=== PATIENT | female | born 1935 | race Hispanic/Latino ===

== ENCOUNTER → 2017-08-10 | Outpatient (CLI) | payer OTHER ==
[~2017-08-10] MED LIST: ACET-2247 PO; ALEN70TA47 PO; AMLO10TA2 PO; CARV3.12 PO; FLUTICASONE NASAL; FURO20TA4 PO; FURO40TA5 PO; KLOR CON PO; LATA2.5D2 OP; LATANOPROST OU; Losartan Potassium PO; MONT10TA24 PO; NITR0.4T SL; PRAV40TA3 PO; WARF2.5T85 PO
== END | disposition home or self-care (01) ==
LOC: RAH 07:58
PROVIDERS: ATTEND Internal Medicine
DX: M43.17 Spondylolisthesis, lumbosacral region (principal); M41.86 Other forms of scoliosis, lumbar region
CPT/HCPCS: 72100

== ENCOUNTER 2017-11-15 21:32 | Emergency (ER) | payer OTHER ==
[~2017-11-15 21:32] MED LIST changes: -AMLO10TA2 PO; +AMLO10TA6 PO
[2017-11-15 22:04] LABS: BASOPHILS % (AUTO) 0.5 % (0.0-5.0); EOSINOPHILS % (AUTO) 1.8 % (0.0-8.0); HEMATOCRIT 37.5 % (36-48); LYMPHOCYTES % (AUTO) 24.5 % (21.0-51.0); MEAN CORPUSCULAR HEMOGLOBIN 31.9 pg (27.0-33.0); MEAN CORPUSCULAR HGB CONC 33.4 g/dL (32.0-36.0); MEAN CORPUSCULAR VOLUME 95.6 fL (79-99); MONOCYTES % (AUTO) 10.3 % (3.0-13.0); NEUTROPHILS % (AUTO) 62.9 % (40.0-77.0); PLATELET COUNT (AUTO) 148 K/uL (130-400); RED BLOOD CELL COUNT(AUTO) 3.93 MIL/uL (4.00-5.50); RED CELL DISTRIBUTION WIDTH 14.5 % (11.0-15.5); WHITE BLOOD COUNT (AUTO) 9.1 K/uL (4.8-10.8)
[2017-11-15 22:20] LABS: CREATININE 1.2 mg/dL (0.5-1.5); POTASSIUM 4.6 mmol/L (3.5-5.1)
[2017-11-15 22:23] LABS: BILIRUBIN,TOTAL 0.5 mg/dL (0.2-1.0)
[2017-11-15 22:30] LABS: INR 2.41 (0.85-1.15); PARTIAL THROMBOPLASTIN TIME 46.9 SEC (26.3-35.5); PROTHROMBIN TIME 24.9 SEC (9.6-11.6)
== END 2017-11-16 00:31 | disposition home or self-care (01) ==
LOC: EDH 21:32
DX: S00.03XA Contusion of scalp, initial encounter (principal); E78.5 Hyperlipidemia, unspecified; I10 Essential (primary) hypertension; I25.10 Atherosclerotic heart disease of native coronary artery without angina pectoris; W20.8XXA Other cause of strike by thrown, projected or falling object, initial encounter; Y93.89 Activity, other specified; Y92.89 Other specified places as the place of occurrence of the external cause; Y99.8 Other external cause status
CPT/HCPCS: 36415; 70450; 72125; 80053; 84484; 85025; 85610; 85730; 93005

== ENCOUNTER 2018-04-12 10:30 | Emergency (ER) | payer OTHER ==
[~2018-04-12 10:30] MED LIST changes: +ALEN70TA10 PO; -ALEN70TA47 PO; -AMLO10TA6 PO; +AMLO10TA7 PO
[2018-04-12 10:57] LABS: BASOPHILS % (AUTO) 0.4 % (0.0-5.0); EOSINOPHILS % (AUTO) 1.9 % (0.0-8.0); HEMATOCRIT 33.1 % (36-48); LYMPHOCYTES % (AUTO) 20.4 % (21.0-51.0); MEAN CORPUSCULAR HEMOGLOBIN 31.7 pg (27.0-33.0); MEAN CORPUSCULAR HGB CONC 33.7 g/dL (32.0-36.0); MEAN CORPUSCULAR VOLUME 94.2 fL (79-99); MONOCYTES % (AUTO) 13.3 % (3.0-13.0); NUCLEATED RED BLOOD CELLS 0.1 % (0.0-0.19); PLATELET COUNT (AUTO) 143 K/uL (130-400); RED BLOOD CELL COUNT(AUTO) 3.51 MIL/uL (4.00-5.50); RED CELL DISTRIBUTION WIDTH 14.5 % (11.0-15.5); WHITE BLOOD COUNT (AUTO) 5.4 K/uL (4.8-10.8)
[2018-04-12 11:50] LABS: ALBUMIN 3.4 g/dL (3.5-5.0); BILIRUBIN,TOTAL 0.4 mg/dL (0.2-1.0); CREATININE 1.5 mg/dL (0.5-1.5); POTASSIUM 3.5 mmol/L (3.5-5.1); TOTAL PROTEIN, SERUM 7.1 g/dL (6.0-8.3)
[2018-04-12] MEDS ORDERED: FURO40TA5 PO (13:40)
[2018-04-12] MEDS ORDERED: Losartan Potassium PO (13:40)
[2018-04-12] MEDS ORDERED: WARF2.5T85 PO (13:40)
[2018-04-12] MEDS ORDERED: CARV3.12 PO (13:40)
[2018-04-12] MEDS ORDERED: UMEC1DIS IH (13:45)
[2018-04-12] MEDS ORDERED: LEVO500T2 PO (13:45)
[2018-04-12] MEDS ORDERED: PRED10TA3 PO ×2 (13:45→13:47)
[2018-04-12] MEDS ORDERED: BRIM5DRO OP (13:45)
[2018-04-12] MEDS ORDERED: ACET-2247 PO (13:45)
[2018-04-12] MEDS ORDERED: ALBU2.5V2 IH (13:45)
== END 2018-04-12 15:48 | disposition home or self-care (01) ==
LOC: EDH 10:30
DX: I48.92 Unspecified atrial flutter (principal); I48.91 Unspecified atrial fibrillation; R55 Syncope and collapse; E86.0 Dehydration; I10 Essential (primary) hypertension; E78.5 Hyperlipidemia, unspecified; I25.810 Atherosclerosis of coronary artery bypass graft(s) without angina pectoris; Z88.8 Allergy status to other drugs, medicaments and biological substances
CPT/HCPCS: 36415; 71045; 80053; 82550; 84484; 85025; 93005; 96360; 96361

== ENCOUNTER → 2018-05-08 | Outpatient (CLI) | payer OTHER ==
[~2018-05-08] MED LIST changes: +ALBU2.5V2 IH; +BRIM5DRO OP; -FLUTICASONE NASAL; -FURO20TA4 PO; -LATANOPROST OU; +LEVO500T2 PO; +PRED10TA3 PO; +UMEC1DIS IH
== END | disposition home or self-care (01) ==
LOC: SHCH 11:15
PROVIDERS: ATTEND Internal Medicine Cardiovascular Disease
DX: I08.2 Rheumatic disorders of both aortic and tricuspid valves (principal); R09.89 Other specified symptoms and signs involving the circulatory and respiratory systems
CPT/HCPCS: 93306; 93880

== ENCOUNTER → 2018-08-01 | Outpatient (CLI) | payer OTHER | END | disposition home or self-care (01) | LOC: RAH 09:43 | PROVIDERS: ATTEND Internal Medicine | DX: I11.9 Hypertensive heart disease without heart failure (principal); R04.2 Hemoptysis | CPT/HCPCS: 71046 ==

== ENCOUNTER → 2018-09-18 | Outpatient (CLI) | payer OTHER | END | disposition home or self-care (01) | LOC: RAH 13:00 | PROVIDERS: ATTEND Internal Medicine | DX: S09.90XA Unspecified injury of head, initial encounter (principal); X58.XXXA Exposure to other specified factors, initial encounter; Y93.89 Activity, other specified; Y92.89 Other specified places as the place of occurrence of the external cause; Y99.8 Other external cause status | CPT/HCPCS: 70450 ==

== ENCOUNTER → 2019-09-02 | Outpatient (CLI) | payer OTHER ==
[~2019-09-02] MED LIST changes: -MONT10TA24 PO; +MONT10TA26 PO
== END | disposition home or self-care (01) ==
LOC: SHCH 08:25
PROVIDERS: ATTEND Internal Medicine Cardiovascular Disease
DX: I10 Essential (primary) hypertension (principal)
CPT/HCPCS: 93306; 93356

== ENCOUNTER → 2019-09-17 | Outpatient (CLI) | payer OTHER | END | disposition home or self-care (01) | LOC: OIH 08:52 | PROVIDERS: ATTEND Internal Medicine | DX: M47.812 Spondylosis without myelopathy or radiculopathy, cervical region (principal); M48.02 Spinal stenosis, cervical region; I70.0 Atherosclerosis of aorta; M21.932 Unspecified acquired deformity of left forearm; M19.042 Primary osteoarthritis, left hand; M19.032 Primary osteoarthritis, left wrist; M81.0 Age-related osteoporosis without current pathological fracture; Z95.0 Presence of cardiac pacemaker | CPT/HCPCS: 72040; 73090; 73110; 73130 ==

== ENCOUNTER → 2019-09-23 | Outpatient (CLI) | payer OTHER | END | disposition home or self-care (01) | LOC: OIH 08:38 | PROVIDERS: ATTEND Internal Medicine | DX: M47.812 Spondylosis without myelopathy or radiculopathy, cervical region (principal); M48.02 Spinal stenosis, cervical region | CPT/HCPCS: 72040 ==

== ENCOUNTER → 2020-01-27 | Outpatient (CLI) | payer OTHER ==
[~2020-01-27] MED LIST changes: -ALEN70TA10 PO; +ALEN70TA69 PO; +AMLO-258 PO; -AMLO10TA7 PO; +LATA2.5D14 OP; -LATA2.5D2 OP; -MONT10TA26 PO; +MONT10TA96 PO
== END | disposition home or self-care (01) ==
LOC: RAH 12:38
PROVIDERS: ATTEND Internal Medicine
DX: S09.90XA Unspecified injury of head, initial encounter (principal); I67.82 Cerebral ischemia; G31.9 Degenerative disease of nervous system, unspecified; G93.89 Other specified disorders of brain; X58.XXXA Exposure to other specified factors, initial encounter; Y93.89 Activity, other specified; Y92.89 Other specified places as the place of occurrence of the external cause; Y99.8 Other external cause status; Z79.01 Long term (current) use of anticoagulants
CPT/HCPCS: 70450

== ENCOUNTER → 2020-07-03 | Outpatient (CLI) | payer OTHER ==
[~2020-07-03] MED LIST changes: -ALEN70TA69 PO; +ALEN70TA80 PO; +MONT10TA32 PO; -MONT10TA96 PO
== END | disposition home or self-care (01) ==
LOC: RAH 14:12
PROVIDERS: ATTEND Internal Medicine
DX: E04.2 Nontoxic multinodular goiter (principal); I51.7 Cardiomegaly; Z95.0 Presence of cardiac pacemaker
CPT/HCPCS: 71046; 76536

== ENCOUNTER → 2020-07-22 | Outpatient (CLI) | payer OTHER | END | disposition home or self-care (01) | LOC: RAH 11:31 | PROVIDERS: ATTEND Otolaryngology Plastic Surgery within the Head & Neck | DX: R49.8 Other voice and resonance disorders (principal); R13.10 Dysphagia, unspecified | CPT/HCPCS: 74230; 92611 ==

== ENCOUNTER 2020-09-08 03:35 | Emergency (ER) | payer OTHER ==
[2020-09-08 03:40] VITALS: BP 136/85
[2020-09-08 04:12] VITALS: BP 156/71
[2020-09-08 04:24] LABS: BASOPHILS % (AUTO) 0.4 % (0.0-5.0); EOSINOPHILS % (AUTO) 2.1 % (0.0-8.0); HEMATOCRIT 37.3 % (36-48); LYMPHOCYTES % (AUTO) 33.9 % (21.0-51.0); MEAN CORPUSCULAR HEMOGLOBIN 30.9 pg (27.0-33.0); MEAN CORPUSCULAR HGB CONC 31.9 g/dL (32.0-36.0); MEAN CORPUSCULAR VOLUME 96.9 fL (79-99); MONOCYTES % (AUTO) 9.2 % (3.0-13.0); NEUTROPHILS % (AUTO) 54.1 % (40.0-77.0); PLATELET COUNT (AUTO) 194 K/uL (130-400); RED BLOOD CELL COUNT(AUTO) 3.85 MIL/uL (4.00-5.50); RED CELL DISTRIBUTION WIDTH 15.2 % (11.0-15.5); WHITE BLOOD COUNT (AUTO) 7.1 K/uL (4.8-10.8)
[2020-09-08 04:40] LABS: POTASSIUM 4.5 mmol/L (3.5-5.1)
[2020-09-08 04:45] LABS: ALBUMIN 3.8 g/dL (3.5-5.0); BILIRUBIN,TOTAL 0.4 mg/dL (0.2-1.0); TOTAL PROTEIN, SERUM 7.5 g/dL (6.0-8.3)
[2020-09-08 05:00] LABS: APPEARANCE,URINE Clear (CLEAR); BILIRUBIN,URINE Negative (NEGATIVE); COLOR,URINE Yellow (YELLOW); GLUCOSE, URINE (UA) Negative (NEGATIVE); KETONES,URINE Negative (NEGATIVE); LEUKOCYTE ESTERASE ,URINE Negative (NEGATIVE); NITRATE,URINE Negative (NEGATIVE); OCCULT BLOOD,URINE Negative (NEGATIVE); PH,URINE 6.5 (5.0-8.0); PROTEIN,URINE Negative (NEGATIVE); UROBILINOGEN,URINE 0.2 mg/dL (0.2-1.0)
[2020-09-08 05:17] LABS: INR 2.65 (0.85-1.15); PROTHROMBIN TIME 26.4 SEC (9.6-11.6)
[2020-09-08 05:29] LABS: B-TYPE NATRIURETIC PEPTIDE 252 pg/mL (0-100)
[2020-09-08 06:53] VITALS: BP 148/78
[2020-09-08] MEDS ORDERED: IBUP-2076 PO (07:46)
[2020-09-08] MEDS ORDERED: KETOROLAC 15MG/ML VIAL (15MG/ML) IV SCH (08:00)
[2020-09-08] MEDS ORDERED: KETOROLAC 15MG/ML VIAL (15MG/ML) IV ONE (08:00)
[2020-09-08 08:07] VITALS: BP 137/81
== END 2020-09-08 09:31 | disposition home or self-care (01) ==
LOC: EDH 03:35
DX: R07.89 Other chest pain (principal); E78.00 Pure hypercholesterolemia, unspecified; I10 Essential (primary) hypertension; I48.91 Unspecified atrial fibrillation; Z79.01 Long term (current) use of anticoagulants; Z79.1 Long term (current) use of non-steroidal anti-inflammatories (NSAID); Z79.52 Long term (current) use of systemic steroids; Z79.899 Other long term (current) drug therapy
CPT/HCPCS: 36415; 71045; 80053; 81003; 83880; 84484; 85025; 85610; 85730; 93005; 96374; 99285; J1885

== ENCOUNTER 2020-09-13 12:48 | Observation (INO) | payer OTHER ==
[~2020-09-13] VITALS: Ht 160 cm; Wt 70.4 kg
[~2020-09-13 12:48] MED LIST changes: +IBUP-2076 PO
[2020-09-13 13:22] LABS: APPEARANCE,URINE Clear (CLEAR); BILIRUBIN,URINE Negative (NEGATIVE); COLOR,URINE Yellow (YELLOW); GLUCOSE, URINE (UA) Negative (NEGATIVE); KETONES,URINE Negative (NEGATIVE); LEUKOCYTE ESTERASE ,URINE Negative (NEGATIVE); NITRATE,URINE Negative (NEGATIVE); OCCULT BLOOD,URINE Negative (NEGATIVE); PH,URINE 5.5 (5.0-8.0); PROTEIN,URINE Negative (NEGATIVE); UROBILINOGEN,URINE 0.2 mg/dL (0.2-1.0)
[2020-09-13] MEDS ORDERED: ASPIRIN 325MG TAB PO ONE (13:30)
[2020-09-13] MEDS ORDERED: NITROGLYCERIN 1GM OINT 1 INCH/1GM TD SCH ×2 (13:30→21:00)
[2020-09-13] MEDS ORDERED: AMIODARONE 150MG VIAL 150 MG in DEXTROSE 5%-WATER 100 ML IV SCH (13:30)
[2020-09-13] MEDS ORDERED: METOPROLOL TARTRATE 1 MG/ML 5ML VIAL IV ONE (13:51)
[2020-09-13 13:56] VITALS: BP 116/77
[2020-09-13 14:25] LABS: INR 1.42 (0.85-1.15)
[2020-09-13 14:29] LABS: ALBUMIN 4.1 g/dL (3.5-5.0); BILIRUBIN,TOTAL 0.7 mg/dL (0.2-1.0); CREATININE 1.1 mg/dL (0.5-1.5); POTASSIUM 4.5 mmol/L (3.5-5.1); TOTAL PROTEIN, SERUM 8.1 g/dL (6.0-8.3)
[2020-09-13 14:42] LABS: PARTIAL THROMBOPLASTIN TIME 20.8 SEC (26.3-35.5)
[2020-09-13 14:46] LABS: BASOPHILS % (AUTO) 0.1 % (0.0-5.0); HEMATOCRIT 38.5 % (36-48); LYMPHOCYTES % (AUTO) 16.8 % (21.0-51.0); MEAN CORPUSCULAR HEMOGLOBIN 30.8 pg (27.0-33.0); MEAN CORPUSCULAR HGB CONC 32.5 g/dL (32.0-36.0); MEAN CORPUSCULAR VOLUME 94.8 fL (79-99); MONOCYTES % (AUTO) 3.6 % (3.0-13.0); NEUTROPHILS % (AUTO) 77.2 % (40.0-77.0); PLATELET COUNT (AUTO) 182 K/uL (130-400); RED BLOOD CELL COUNT(AUTO) 4.06 MIL/uL (4.00-5.50); RED CELL DISTRIBUTION WIDTH 15.5 % (11.0-15.5)
[2020-09-13 15:11] LABS: B-TYPE NATRIURETIC PEPTIDE 328 pg/mL (0-100)
[2020-09-13 15:18] VITALS: BP 135/66
[2020-09-13 17:30] VITALS: BP 134/58
[2020-09-13] MEDS ORDERED: CEFD300C3 PO (18:06)
[2020-09-13] MEDS ORDERED: AMLO-258 PO (18:06)
[2020-09-13] MEDS ORDERED: PRAV40TA3 PO (18:06)
[2020-09-13] MEDS ORDERED: CETI10TA86 PO (18:06)
[2020-09-13] MEDS ORDERED: POTA-79 PO (18:06)
[2020-09-13] MEDS ORDERED: IPRA3S NASAL (18:06)
[2020-09-13] MEDS ORDERED: MONT10TA32 PO (18:06)
[2020-09-13] MEDS ORDERED: FLUT16H NASAL (18:06)
[2020-09-13 19:28] VITALS: BP 151/69
[2020-09-13 22:02] VITALS: BP 157/72
[2020-09-13] MEDS ORDERED: NITROGLYCERIN 0.4 MG SL TAB SL PRN (22:30)
[2020-09-13] MEDS ORDERED: KCL 20 MEQ ERTAB PO PRN (22:30)
[2020-09-13] MEDS ORDERED: POTASSIUM CHLORIDE 10% ELIXIR 20 MEQ/15 ML UDCUP PO PRN (22:30)
[2020-09-13] MEDS ORDERED: ALBUTEROL 0.083% 2.5 MG/3 ML INH IH PRN (22:30)
[2020-09-13] MEDS ORDERED: METOPROLOL TARTRATE 1 MG/ML 5ML VIAL IV PRN (22:30)
[2020-09-13] MEDS ORDERED: MAG/ALUM/SIMETH 30 ML UDCUP PO PRN (22:30)
[2020-09-13] MEDS ORDERED: DiphenhydrAMINE HCL 50 MG/ML VIAL IV PRN (22:30)
[2020-09-13] MEDS ORDERED: ACETAMINOPHEN 325 MG TAB PO PRN ×2 (22:30)
[2020-09-13] MEDS ORDERED: LIDOCAINE HCL-MPF 1% 2ML VIAL IV PRN (22:30)
[2020-09-13] MEDS ORDERED: POTASSIUM CHLORIDE 20MEQ/100ML 100 ML IV PRN (22:30)
[2020-09-13] MEDS ORDERED: DIPHENHYDRAMINE HCL 25 MG CAPSULE PO PRN (22:30)
[2020-09-13] MEDS ORDERED: ONDANSETRON 4MG INJ IV PRN (22:30)
[2020-09-13] MEDS ORDERED: LACTULOSE 20 GM/30 ML UDCUP PO PRN (22:30)
[2020-09-13] MEDS ORDERED: FLUTICASONE PROPIONATE 50MCG/SPRAY 16 GM BOTTLE EN PRN (22:30)
[2020-09-13 23:59] VITALS: BP 163/79
[2020-09-14] VITALS (8 sets, daily range): BP systolic 133–173; BP diastolic 56–85
[2020-09-14 00:09] LABS: CREATINE KINASE, TOTAL 46 U/L (21-232); MYOGLOBIN 38 ng/mL (10-92); TROPONIN I < 0.04 ng/mL (0.00-0.06)
[2020-09-14 06:24] LABS: BASOPHILS % (AUTO) 0.4 % (0.0-5.0); EOSINOPHILS % (AUTO) 1.9 % (0.0-8.0); HEMATOCRIT 44.1 % (36-48); LYMPHOCYTES % (AUTO) 34.3 % (21.0-51.0); MEAN CORPUSCULAR HEMOGLOBIN 30.9 pg (27.0-33.0); MEAN CORPUSCULAR HGB CONC 32.9 g/dL (32.0-36.0); MONOCYTES % (AUTO) 8.1 % (3.0-13.0); NEUTROPHILS % (AUTO) 54.9 % (40.0-77.0); PLATELET COUNT (AUTO) 218 K/uL (130-400); RED BLOOD CELL COUNT(AUTO) 4.69 MIL/uL (4.00-5.50); RED CELL DISTRIBUTION WIDTH 15.5 % (11.0-15.5); WHITE BLOOD COUNT (AUTO) 11.3 K/uL (4.8-10.8)
[2020-09-14 06:58] LABS: ALBUMIN 3.8 g/dL (3.5-5.0); BILIRUBIN,TOTAL 0.6 mg/dL (0.2-1.0); CREATININE 0.9 mg/dL (0.5-1.5); POTASSIUM 3.7 mmol/L (3.5-5.1); TOTAL PROTEIN, SERUM 7.7 g/dL (6.0-8.3)
[2020-09-14] MEDS ORDERED: FLUTICASONE PROPIONATE 50MCG/SPRAY 16 GM BOTTLE EN PRN (07:00)
[2020-09-14] MEDS ORDERED: LOSARTAN PO SCH (09:00)
[2020-09-14] MEDS ORDERED: PANTOPRAZOLE 40 MG TAB DR PO SCH (09:00)
[2020-09-14] MEDS ORDERED: KCL 20 MEQ ERTAB PO SCH (09:00)
[2020-09-14] MEDS ORDERED: TIMOLOL MALEATE 0.5% 5 ML BOTTLE OP SCH (09:00)
[2020-09-14] MEDS ORDERED: ANORO ELLIPTA IH SCH (09:00)
[2020-09-14] MEDS ORDERED: BRIMONIDINE TARTRATE 0.2% 5 ML BOTTLE OP SCH (09:00)
[2020-09-14] MEDS ORDERED: MONTELUKAST SODIUM 10 MG TAB PO SCH (09:00)
[2020-09-14] MEDS ORDERED: FUROSEMIDE 40 MG TABLET PO SCH (09:00)
[2020-09-14 09:36] LABS: CREATINE KINASE, TOTAL 71 U/L (21-232); MYOGLOBIN 41 ng/mL (10-92); TROPONIN I < 0.04 ng/mL (0.00-0.06)
[2020-09-14] MEDS: CARVEDILOL 3.125 MG TABLET PO SCH ×2 (10:00→20:23)
[2020-09-14] MEDS ORDERED: REGADENOSON 0.4 MG/5 ML PF SYG IVP SCH (13:30)
[2020-09-14] MEDS: NITROGLYCERIN 1GM OINT 1 INCH/1GM TD SCH ×2 (14:12→17:13)
[2020-09-14] MEDS ORDERED: CARV3.1262 PO (20:02)
[2020-09-14] MEDS ORDERED: LATANOPROST 2.5 ML DROPS OP SCH (21:00)
[2020-09-14] MEDS ORDERED: WARFARIN SODIUM 2.5 MG TAB PO SCH (21:00)
[2020-09-14] MEDS ORDERED: ATORVASTATIN 10 MG TABLET PO SCH (21:00)
== END 2020-09-14 20:30 | disposition home or self-care (01) ==
LOC: EDH 12:48 → EDHIP 16:40 → INTOOBSV 16:40 → EDHIP 22:58 → 4DH 09-14 09:46
PROVIDERS: ADMIT Internal Medicine; ATTEND Internal Medicine
DX: I24.9 Acute ischemic heart disease, unspecified (principal); M81.0 Age-related osteoporosis without current pathological fracture; E78.2 Mixed hyperlipidemia; I13.0 Hypertensive heart and chronic kidney disease with heart failure and stage 1 through stage 4 chronic kidney disease, or unspecified chronic kidney disease; I50.42 Chronic combined systolic (congestive) and diastolic (congestive) heart failure; N18.30 Chronic kidney disease, stage 3 unspecified; F41.1 Generalized anxiety disorder; E04.2 Nontoxic multinodular goiter; H40.9 Unspecified glaucoma; I42.0 Dilated cardiomyopathy; I48.20 Chronic atrial fibrillation, unspecified; D68.59 Other primary thrombophilia; I49.5 Sick sinus syndrome; I25.10 Atherosclerotic heart disease of native coronary artery without angina pectoris; E78.5 Hyperlipidemia, unspecified; E88.81 Metabolic syndrome and other insulin resistance; D41.4 Neoplasm of uncertain behavior of bladder; E78.00 Pure hypercholesterolemia, unspecified; Z79.01 Long term (current) use of anticoagulants; Z95.810 Presence of automatic (implantable) cardiac defibrillator; Z79.899 Other long term (current) drug therapy
CPT/HCPCS: 36415 ×2; 71045; 78452; 80053 ×2; 81003; 82550 ×3; 83874 ×3; 83880; 84484 ×4; 85025 ×2; 85610; 85730; 93005 ×2; 93017; 96365; 96366; 96375; 99285; A9500 ×2; G0378 ×20; J0282; J2785; J7060; 96374

== ENCOUNTER 2021-02-27 10:57 | Emergency (ER) | payer OTHER ==
[~2021-02-27] VITALS: Ht 157.5 cm; Wt 69.4 kg
[~2021-02-27 10:57] MED LIST changes: -AMLO-258 PO; -CARV3.12 PO; +CARV3.1262 PO; +CETI10TA87 PO; +FLUT16H NASAL; -IBUP-2076 PO; -KLOR CON PO; -LEVO500T2 PO; +MONT-39 PO; -MONT10TA32 PO; +POTA-79 PO; -PRED10TA3 PO
[2021-02-27] MEDS ORDERED: ACET-66 PO (11:58)
[2021-02-27 12:06] VITALS: BP 164/62
== END 2021-02-27 12:06 | disposition home or self-care (01) ==
LOC: EDH 10:57
DX: S42.002A Fracture of unspecified part of left clavicle, initial encounter for closed fracture (principal); I10 Essential (primary) hypertension; E78.00 Pure hypercholesterolemia, unspecified; Z90.710 Acquired absence of both cervix and uterus; Z79.899 Other long term (current) drug therapy; Z79.01 Long term (current) use of anticoagulants; Z88.8 Allergy status to other drugs, medicaments and biological substances; W18.39XA Other fall on same level, initial encounter; Y93.89 Activity, other specified; Y92.89 Other specified places as the place of occurrence of the external cause; Y99.8 Other external cause status
CPT/HCPCS: 71045; 73030

== ENCOUNTER → 2022-03-09 | Outpatient (CLI) | payer OTHER ==
[~2022-03-09] MED LIST changes: +ACET-66 PO
== END | disposition home or self-care (01) ==
LOC: RAH 12:19
PROVIDERS: ATTEND Otolaryngology Plastic Surgery within the Head & Neck
DX: K21.9 Gastro-esophageal reflux disease without esophagitis (principal); R13.10 Dysphagia, unspecified
CPT/HCPCS: 74230; 92611

== ENCOUNTER → 2023-09-12 | Outpatient (CLI) | payer OTHER ==
[~2023-09-12] MED LIST changes: +POTA-364 PO; -POTA-79 PO
== END | disposition home or self-care (01) ==
LOC: SHCH 09:22
PROVIDERS: ATTEND Internal Medicine Cardiovascular Disease
DX: I08.8 Other rheumatic multiple valve diseases (principal); I11.9 Hypertensive heart disease without heart failure; I48.91 Unspecified atrial fibrillation; E78.5 Hyperlipidemia, unspecified; Z95.0 Presence of cardiac pacemaker
CPT/HCPCS: 93306